=== PATIENT | female | born 1980 | race Two or more races ===

== ENCOUNTER 2024-10-11 21:35 | Emergency (ER) | payer OTHER ==
[~2024-10-11] VITALS: Ht 162.6 cm; Wt 68.0 kg
[2024-10-11] MEDS ORDERED: TRAMADOL HCL 50 MG TABLET PO ONE (23:00)
[2024-10-12] MEDS ORDERED: MORPHINE SULFATE 4 MG/ML VIAL IV ONE (01:00)
[2024-10-12] MEDS ORDERED: 0.9 % SODIUM CHLORIDE 1,000 ML IV SCH (01:00)
[2024-10-12 01:44] LABS: HEMATOCRIT 33.9 % (36.0-45.00); HEMOGLOBIN 11.2 g/dL (12.0-15.00); MEAN CELL VOLUME 85.9 fL (80.00-100.00); MEAN CORPUSCULAR HEMOGLOBIN 28.4 pg (27.00-32.0); MEAN CORPUSCULAR HGB CONC 33.1 g/dl (32.0-36.0); PLATELET COUNT 230 K/uL (150-450); RED BLOOD COUNT 3.94 M/uL (4.00-6.00); RED CELL DISTRIBUTION WIDTH 13.9 % (11.5-14.5)
[2024-10-12 02:10] LABS: PARTIAL THROMBOPLASTIN TIME 22.9 SECONDS (22.0-34.0); PROTHROMBIN TIME 10.9 SECONDS (9.0-11.5)
[2024-10-12 02:11] LABS: ALBUMIN 3.5 gm/dL (3.4-5.0); BILIRUBIN TOTAL 0.23 mg/dL (0.3-1.2); CALCIUM 9.4 mg/dL (8.5-10.1); CREATININE SERUM 0.73 mg/dL (0.55-1.02); GFR 87.43; GLOBULINA 4.1 G/DL (2.4-3.5); POTASSIUM 3.92 mEq/L (3.5-5.1); TOTAL PROTEIN 7.6 gm/dL (6.4-8.2)
== END 2024-10-12 06:53 | disposition designated cancer center or children's hospital (05) ==
LOC: ER 21:36
PROVIDERS: General Practice
DX: S42.422A Displaced comminuted supracondylar fracture without intercondylar fracture of left humerus, initial encounter for closed fracture (principal); S52.092A Other fracture of upper end of left ulna, initial encounter for closed fracture; W05.1XXA Fall from non-moving nonmotorized scooter, initial encounter; Y93.89 Activity, other specified; Y92.89 Other specified places as the place of occurrence of the external cause; Y99.9 Unspecified external cause status